=== PATIENT | female | born 1940 | race Caucasian/White ===

== ENCOUNTER 2016-11-03 20:34 | Inpatient (IN) | payer OTHER ==
[~2016-11-03] VITALS: Ht 157.5 cm; Wt 60.6 kg
--- NOTE | 2016-11-04 03:49 | NUR ---
0320 11/04/2016 RECEIVED PT FROM MED SURG UNIT FOR C/OS HYPOTENSION. REPORT FROM JANELL HAILE RN. INITIAL BP 100/55 BUT SUBSEQUENT BLOOD PRESSURE 87-72/50. DOPAMINE GTT STARTED ORDERED INITIALLY AT 2.5 MCG/KG/MIN. NORMAL SALINE INFUSING AT 125 ML/HR VIA #20 ANGIO LEFT FOREARM. WILL MONITOR CLOSELY.
--- NOTE | 2016-11-04 08:29 | NUR ---
0740; PT OFF FLOOR FOR PROCEDURE
--- NOTE | 2016-11-04 10:45 | NUR ---
0859: PT BACK ON FLOOR WITH SURGERY TEAM FOR RECOVERY. 0915: BLOOD PRESSURE DECREASED. LEVOPHED STARTED PER PHYSCIAN'S ORDERS 0930: REPORT RECEIVED FROM [facility] DEAN.
--- NOTE | 2016-11-04 17:46 | NUR ---
1630: CARISSA COTTON RN STATED PICC IS "OKAY" TO USE.
--- NOTE | 2016-11-04 18:25 | NUR ---
0915: #[address] DELACRUZ, R/T LOW BLOOD PRESSURE AND NEED TO STARTED LEVOPHED. CONTINUE TO LEAVE IN UNTIL PICC PLACEMENT.
--- NOTE | 2016-11-05 02:51 | NUR ---
0220 PT TRANSFERRED VIA BED TO 3RD FLOOR SO ANOTHER PT CAN BE ADMITTED TO ICU. NO SOA AND NO ACUTE DISTRESS NOTED. TALKATIVE AT THIS TIME.
--- NOTE | 2016-11-05 03:18 | NUR ---
AT 0220 PT TRANSFERRED FROM ICU TO [facility] ROOM 312. PT TRANSFERRED VIA PATIENT BED. PT A/O AND TALKATIVE ON THE WAY UP. PT HAS BEEN MEDICATED FOR PAIN PRIOR TO TRANSFER AND REPORTS PAIN IMPROVED. PT LANGE PATIENT AND DRAINING BLOODY URINE PER PREVIOUS ASSESSMENT FROM STENT PLACEMENT. IVF RESUMED AND PICC PATENT. PT DENIED PAIN OR NEEDS.
== END 2016-11-07 11:54 | disposition home or self-care (01) | DRG 872 ==
LOC: MED 20:34 → ICU 11-04 03:04 → MED 11-05 02:53
PROVIDERS: ADMIT Internal Medicine
PROC: BT14YZZ Fluoroscopy of Kidneys, Ureters and Bladder using Other Contrast (ICD-10-PCS; principal; 2016-11-04)
PROC: 0T788DZ Dilation of Bilateral Ureters with Intraluminal Device, Via Natural or Artificial Opening Endoscopic (ICD-10-PCS; 2016-11-04)
PROC: 02HV33Z Insertion of Infusion Device into Superior Vena Cava, Percutaneous Approach (ICD-10-PCS; 2016-11-04)
DX: A41.9 Sepsis, unspecified organism (principal); N12 Tubulo-interstitial nephritis, not specified as acute or chronic; N13.6 Pyonephrosis; B96.20 Unspecified Escherichia coli [E. coli] as the cause of diseases classified elsewhere; E87.6 Hypokalemia; E03.9 Hypothyroidism, unspecified; D72.829 Elevated white blood cell count, unspecified; N30.80 Other cystitis without hematuria; M81.0 Age-related osteoporosis without current pathological fracture; Z85.3 Personal history of malignant neoplasm of breast; Z90.49 Acquired absence of other specified parts of digestive tract; Z90.10 Acquired absence of unspecified breast and nipple; Z79.899 Other long term (current) drug therapy; D50.9 Iron deficiency anemia, unspecified; K21.9 Gastro-esophageal reflux disease without esophagitis; Z80.9 Family history of malignant neoplasm, unspecified; K59.00 Constipation, unspecified
CPT/HCPCS: 97161-GP; 97165; C1751; C2617; J0360; J1644; J2370; J2765; Q9967